=== PATIENT | male | born 1970 | race Caucasian/White ===

== ENCOUNTER 2025-01-09 15:26 | Emergency (ER) | payer OTHER, SELFPAY ==
--- NOTE | ~2025-01-09 | XR_ITS ---
EXAM: XR lumbar spine 2-3V DATE: 01/09/2025 19:12 HISTORY: back pain following heavy weight dropping on chest . COMPARISON: None available. FINDINGS: Mild scoliosis. 5 nonrib-bearing lumbar-type vertebral bodies. Pedicles intact. Normal vert ebral body alignment. Mild lateral vertebral height asymmetry in the frontal view presumably related to scoliosis and degenerative change. Mild marginal osteophytosis at L3-4. Mild disc space narrowing at L4-5. Mild facet hypertrophy and sclerosis in the lower lumbar spine. No fracture or dislocation. IMPRESSION: No acute fracture or traumatic malalignment detected in the lumbar spine. If symptoms per sist or clinical suspicion of injury is high, consider CT of the lumbar spine. Reviewed, dictated and finalized at location K. IMPRESSION: No acute fracture or traumatic malalignment detected in the lumbar spine. If symptoms persist or clinical suspicion of injury is high, consider CT of the lumbar spine.
--- NOTE | ~2025-01-09 | XR_ITS ---
EXAM: XR thoracic spine 3V DATE: 01/09/2025 19:12 HISTORY: back pain following heavy weight dropping on chest . COMPARISON: None available. FINDINGS: Vertebral body alignment intact. Vertebral body heights preserved. Mild anterior wedge def ormity at the thoracolumbar junction, presumably physiologic or chronic. Mild multilevel degenerative disc disease. No traumatic malalignment or fracture. Visualized lung parenchyma is clear. IMPRESSION: No acute fracture or traumatic malalignment detected in the thoracic spine. If symptoms p ersist or clinical suspicion of injury is high, consider CT of the thoracic spine. Reviewed, dictated and finalized at location K. IMPRESSION: No acute fracture or traumatic malalignment detected in the thoraci c spine. If symptoms persist or clinical suspicion of injury is high, consider CT of the thoracic spine.
--- NOTE | ~2025-01-09 | XR_ITS ---
EXAMINATION: XR ribs RT 2V w CXR 2V Exam Date/Time: 01/09/2025 18:55 CDT HISTORY: rib pain, injury Comparison: None available. RESULT: Lines, tubes, and devices: None. Lungs and pleura: Clear. Cardiothymic silhouette: Stable. Other: No acute osseous or upper abdominal finding. IMPRESSION: No acute cardiopulmonary process. No acute osseous finding in the right ribs. Reviewed, dictated and finalized at location K.
--- OUTSIDE RECORDS SUMMARY | 2025-01-09 15:32 | XMS_ITS | Clinical Summary ---
Author Organization [facility] Address [address] [place] [address] Care Team Providers Care Pipe Layer Helper Name Role Phone Jake Best MD Primary Care Provider + Allergies No known active allergies Medications multivitamin tabletIndication s:Vitamin Deficiency Prevention Take 1 tablet by mouth every morning Active protein supplement liquidIndication s:whey protien after work out Take by mouth every morning Active creatine monohydrate 5,000 mg powder in packetIndication s:supplement Take by mouth every morning Active amino acids-whey prot conc,iso 26 gram-150 kcal/39 gram powder Take by mouth Active Active Problems Problem Noted Date Diagnosed Date Complete tear of left rotator cuff 03/23/2021 Overview (03/23/2021): Added automatically from request for surgery [id number] Partial tear of subscapulari s tendon, left, initial encounter 02/05/2021 TFCC (triangular fibrocartil age complex) injury, left, subsequent encounter 11/11/2019 Left wrist pain 10/14/2019 Overview (10/14/2019): Added automatically from request for surgery [id number] Pain in both wrists 07/15/2019 Hearing loss 03/04/2016 Overview (09/01/2016): Hearing loss Varicose veins of lower extremity 03/01/2016 Acute otitis externa 01/17/2016 Overview (08/31/2016): Acute swimmer's ear of both sides Immunizations Immunization Administration Dates Next Due [facility] SARS-CoV-2 Monovalent Vaccination (12+ Yrs) PURPLE 11/04/2020,10/10/2020 Surgical History Surgery Date Site/Laterality Comments VEIN LIGATION AND STRIPPING 2014? Right under anesthesia CLOSED REDUCTION NASAL FRACTURE 05/29/1999 - 05/28/2000 WRIST SURGERY 10/30/2019 Left wrist arthroscopy WRIST SURGERY Right ROTATOR CUFF REPAIR 03/29/2021 - 04/27/2021 Left Medical History Medical History Date Comments COVID-19 virus not detected 2019 COVI D test done 10/28/2019-->Negative 10/29/2019 0755 EE- pre-op testing Spider bite 01/28/2020 resolved Toenail fungus Osteoarthritis Family History Medical History Relation Name Comments Hypertension Father Hypertension; Arthritis Mother Clotting disorder Mother Diabetes Mother Heart disease Mother Stroke Other Anesthesia problems Neg Hx Relation Name Status Comments Father Mother Other Social History Tobacco Use Types Packs/Day Years Used Date Smoking Tobacco: Never Smokeless Tobacco: Never Tobacco Cessation:Counseling Given: Not Answered Alcohol Use Standard Drinks/Week Comments No 0 (1 standard drink = 0.6 oz pur e alcohol) AUDIT-C Answer Date Recorded Q1: How often do you have a drink containing alc ohol? Never 04/12/2021 Average Number of Drinks Not on file 021 Q3: How often do you have si x or more drinks on one occasion? 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 Gender Identity Not on file Sexual Orientation Not on file Obstetrics History Last Filed Vital Signs Vital Sign Reading Time Taken Comments Blood Pressure 118/72 09/29/2024 2:48 PM CDT Pulse 71 09/29/2024 2:48 PM CDT Temperature 36.7 C (98 F) 09/29/2024 2:48 PM CDT Respiratory Rate 18 09/29/2024 2:48 PM CDT Oxygen Saturation 97% 09/29/2024 2:48 PM CDT Inhaled Oxygen Concentration - - Weight 91.9 kg (202 lb 9.6 oz) 09/29/2024 2:48 P M CDT Height 188 cm (6' 2) 04/04/2023 9:30 AM WINDOW MACHINE OPERATOR Body Mass Index 26.01 04/04/2023 9:30 AM WINDOW MACHINE OPERATOR Plan of Treatment Health Maintenance Due Date Last Done Comments Colon Cancer Screening-Colonoscopy 1971 Depression Screening 1971 Hepatitis C Screening 1971 Hepatitis B Screening 10/27/1989 Regular Well Visit/Exam 18-64 10/27/1989 Prostate Cancer Screening-PSA 06/01/2019 06/01/2017 Zoster Vaccine (1 of 2) 10/27/2021 Covid-19 Vaccine (3 - 2023-2 5 season) 2024 11/04/2020, 10/10/2020 Influenza Vaccine (#1) 2025 , 02/11/2020 DTaP/Tdap/Td Vaccine (3 - Td or Tdap) 10/06/2028 10/06/2018, 05/29/2011 Pneumococcal vaccine <65 Aged Out No longer eligible based on patient's age to complete this topic Medical Devices Implanted Type Area Loan Secretary Device Identifier Shelf Expiration Date Model / Serial / Lot [employer] Ar-1530ds Bio-Tenodesis Fiberwire 2.5mm Needle Cannulated Drill Suture Pass - [id number] Implanted:Qty: 1 on 03/04/2020 by Duglas Andrade MD at [facility] [place] Right: Wrist [employer] 08/26/2024 AR-1 530DS / / [id number] [employer] Ar-8825p Pushlock 2.5mm 8mm Mini [place] Suture Peek Sterile - [id number] Implanted:Qty: 1 on 03/04/2020 by Duglas Andrade MD at [facility] Right: Wrist [employer] 09/25/2024 AR-8 825P / / [id number] [employer] Ar-2267 It Solutions Architect Large Eyelet Pectoralis Button Fixation Latex Free - [id number] Implanted:Qty: 1 on 04/19/2021 by Jan Menchaca MD at [facility] [place] Left: Shoulder [employer] 08/26/2025 AR-2267 / / [id number] [employer] Ar-1927bct Corkscrew Suturetape 5.5mm 14.7mm Bioabsorbable Full Thread 1.3mm - [id number] Implanted:Qty: 1 on 04/19/2021 by Jan Menchaac MD at [facility] [place] Left: Shoulder [employer] 12/26/2022 AR-1927BCT / / [id number] [employer] Ar-1927bct Corkscrew Suturetape 5.5mm 14.7mm Bioabsorbable Full Thread 1.3mm - [id number] Implanted:Qty: 1 on 04/19/2021 by Jan Menchaca MD at [facility] [place] Left: Shoulder [employer] 12/26/2022 AR-1927BCT / / [id number] [employer] Ar-2324 Bcm Swivelock 4.75mm 24.5mm Self Punch Vent Shoulder [place] Suture - [id number] Implanted:Qty: 1 on 04/19/2021 by Jan Menchaca MD at [facility] Left: Shoulder [employer] 01/26/2025 AR-2324BCM / / [id number] [employer] Ar-2324 Bcm Swivelock 4.75mm 24.5mm Self Punch Vent Shoulder [place] Suture - [id number] Implanted:Qty: 1 on 04/19/2021 by Jan Menchaca MD at [facility] Left: Shoulder [employer] 01/26/2025 AR-2324BCM / / [id number] Explanted Type Area Loan Secretary Device Identifier Shelf Expiration Date Model / Serial / Lot [employer] [id number] Denny .45in 9in 1 [place] [facility] Wire Fixation - [id number] Explanted:Qty: 1 on 03/04/2020 by Duglas Andrade MD at [facility] [place] Right: Wrist [employer] [id number] S / / Procedures Procedure Name Priority Date/Time Associated Diagnosis Comments PSA SCREEN Routine 06/01/2017 9:30 AM WINDOW MACHINE OPERATOR from Last 3 Months or Most Recently Relevant to Health Maintenance Results * PSA screen (06/01/2017 9:30 AM WINDOW MACHINE OPERATOR) PSA-Total 0.23 0.10 - 4.00 ng/mL [facility] (PRINCESS) Blood specimen (specimen) 06/01/2017 9:30 AM WINDOW MACHINE OPERATOR 06/01/2017 4:13 PM WINDOW MACHINE OPERATOR Narrative MICHELLE FARRIS (PRINCESS) - 06/01/2017 4:53 PM WINDOW MACHINE OPERATOR us Jake Best MD LAB BLOOD ORDERABLES Fin al Result MICHELLE FARRIS (PRINCESS) 1 [facility] Department [place] [address] from Last 3 Months or Most Recently Relevant to Health Maintenance Insurance [facility] [employer] [place] [address] WORKERS COMPENSATION GENERIC Advance Directives For more information, please contact: [phone] * Full Code (Latest Code Status on File) Date Activated Date Inactivated Comments 03/04/2020 12:16 PM 03/04/2020 5:40 PM Care Teams Pipe Layer Helper Relationship Specialty Start Date End Date Jake Best MD PCP - General 06/02/17
--- OUTSIDE RECORDS SUMMARY | 2025-01-09 15:32 | XMS_ITS | Clinical Summary ---
Author Organization [facility] Address [address] [place] [address] Care Team Providers Care Exterior Work Helper Name Role Phone Jake Best MD Primary Care Provider Allergies No known active allergies Medications multivitamin (DAILY-ALMA) tablet Take 1 Tablet by mouth daily. Active protein supplement (PRO-STAT) Liquid Take by mouth. Active Amino Acids Powder Take by mouth. Active creatine, bulk, 100 % Powder by [facility].(Non-Dr ug; Combo Route) route. Active FA/mv,calc,iron /pollen/idvv367 (MAXIMUM DAILY GREEN ORAL) Take by mouth. Pt takes Huel brand Greens with the mutlti vitamin in it Active Active Problems Patient Care Coordination No te Formatting of this note migh t be different from the original. 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 [place] [address] Singh Castillo MD veins - follow up US results 12/18/2024 8:58 AM CDT - 12/18/2024 11:59 PM CDT Hospital Encounter [facility] [place] [address] [place] [address] Singh Castillo MD Discharge Disposition: Home or Self Care 12/05/2024 12:12 PM CDT - 12/05/2024 11:59 PM CDT Hospital Encounter [facility] [address] [place] [address] Singh Castillo MD Discharge Disposition: Home or Self Care 12/02/2024 Telephone [facility] [address] [place] [address] Singh Castillo MD does insurance cover his 2nd procedure 11/19/2024 8:55 AM CDT - 11/19/2024 11:59 PM CDT Hospital Encounter [facility] [address] [place] [address] Singh Castillo MD Discharge Disposition: Home or Self Care 11/08/2024 Telephone [facility] [address] [place] [address] Singh Castillo MD need help rescheduling his F/U's 11/01/2024 Orders Only [facility] [address] [place] [address] Singh Castillo MD Venous insufficiency (Primary Dx) 11/01/2024 Telephone [facility] [address] [place] [address] Singh Castillo MD wants procedure 10/31/2024 Telephone [facility] [address] [place] [address] Singh Castillo MD wants procedure 10/23/2024 Telephone [facility] [address] [place] [address] Singh Castillo MD Wants Appointment 10/23/2024 Telephone [facility] [address] [facility] [address] [place] [address] Singh Castillo MD Venous Plan 10/22/2024 1:00 PM CDT Office Visit [facility] - [address] [facility] [address] [place] [address] Singh Castillo MD Chronic venous hypertension with inflammation involving both sides (Primary Dx); Varicose veins of both lower extremities with pain 10/22/2024 Chart Note [facility] [address] [facility] [place] [address] Fanny Yakelincristy Sales 14 Questionnaire 10/18/2024 12:33 PM CDT - 10/18/2024 11:59 PM CDT Hospital Encounter [facility] Testing [facility] [address] [facility] [address] [address] [place] [address] Gustavo Barajas MD Discharge Disposition: Home or Self Care 10/18/2024 Results Follow-Up [facility] [address] [facility] [address] [place] [address] Elma Alcantara, CROTCH BREAKER-AQUATIC FACILITY MANAGER US VENOUS REFLUX BILATERAL 10/18/2024 External Device Data STL ABSTRACTION Provider, Abstract 10/17/2024 External Device Data [facility] ABSTRACTION Provider, Abstract 10/16/2024 External Device Data ST[facility] ABSTRACTION Provider, Abstract 10/16/2024 External Device Data STL ABSTRACTION Provider, Abstract 10/15/2024 External Device Data STL ABSTRACTION Provider, Abstract from Last 3 Months Immunizations Immunization Administration Dates Next Due (ADACEL/BOOSTRIX)(10 YR UP) TDAP VACCINE, 0.5ML, IM 10/06/2018,05/29/2011 (PFIZER)(12 YR UP) COVID-19 VACCINE - EMERGENCY USE AUTHORIZATION, MRNA, [id number](PF) 30 MCG/0.3 ML IM SUSP 11/04/2020,10/10/2020 INFLUENZA VACCINE QUADRIVALENT 6 MOS UP PF IM ,02/11/2020 Family History Medical History Relation Name Comments Arthritis-osteo Brother 1 Osteoarthrit is Healthy Brother 2 Heart Disease Father Heart Surgery Father Arthritis-osteo Mother Osteoarthrit is Diabetes Mother Fibromyalgia,Co litis,Neurpathy Relation Name Status Comments Brother 1 Alive with Fibromyalg ia Brother 2 Alive Daughter Alive Father Alive Maternal Grandfather Maternal Grandmother Mother Alive with fibromyalg ia Paternal Grandfather Paternal Grandmother Son 1 Alive Son 2 Alive Son 3 Alive Social History Tobacco Use Types Packs/Day Years Used Date Smoking Tobacco: Never Smokeless Tobacco: Never Tobacco Cessation:Counseling Given: Not Answered Alcohol Use Standard Drinks/Week Comments No 0 (1 standard drink = 0.6 oz pur e alcohol) Sex and Gender Information Value Date Recorded Sex Assigned at Not on file Legal Sex 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 Gender Identity Not on file Sexual Orientation Not on file Last Filed Vital Signs Vital Sign Reading Time Taken Comments Blood Pressure 125/74 12/05/2024 12:24 PM CDT Pulse 71 12/05/2024 12:24 PM CDT Temperature 36.3 C (97.3 F) 12/05/2024 12:24 PM CDT Respiratory Rate 20 08/01/2023 8:55 AM GLUER MACHINE OPERATOR Oxygen Saturation 98% 12/05/2024 12:24 PM CDT Inhaled Oxygen Concentration - - Weight 92.1 kg (203 lb) 12/05/2024 12:24 PM CDT Height 188 cm (6' 2) 12/05/2024 12:24 PM CDT Body Mass Index 26.06 12/05/2024 12:24 PM CDT Plan of Treatment Upcoming Encounters Date Type Department Care Team (Late st Contact Info) Description 02/24/2025 1:15 PM CDT Office Visit [facility] [address] [place] [address] Elma Alcantara, CROTCH BREAKER-AQUATIC FACILITY MANAGER [address] [facility] [address] [place] [address] Health Maintenance Due Date Last Done Comments HEPATITIS B VACCINES (1 of 3 - 19+ 3-dose series) 10/27/1990 FIT-DNA Q 3 years 10/27/2016 FIT/FOBT Q 1 year 10/27/2016 Flex Sig/CT Colonography Q 5 years 10/27/2016 ZOSTER VACCINE (1 of 2) 10/27/2021 COVID-19 Vaccine ( - 2023-2 5 season) 2024 11/04/2020, 10/10/2020 INFLUENZA VACCINE (#1) 2024 03/03/2021, 2019 Pre-Diabetes and Diabetes Screening 08/09/2027 08/08/2024, 03/04/2021, 07/05/2019 DTAP/TDAP/TD VACCINES (3 - T d or Tdap) 10/06/2028 10/06/2018, 05/29/2011 COLORECTAL SCREENING 07/31/2030 08/01/2023, 08/01/19 24 Colorectal Cancer Screening 07/31/2030 Preventative Visit- Commercial Completed 0 08/07/2024, 07/17/2023, 03/03/2021, Additional history exists Procedures Procedure Name Priority Date/Time Associated Diagnosis Comments US VENOUS DUPLEX EXT FOLLOW UP LT Routine 12/18/2024 9:20 AM CDT Venous insufficiency US VENOUS REFLUX BILATERAL Routine 10/18/2024 2:01 PM CDT Venous insufficiency HEMOGLOBIN A1C Routine 08/08/2024 8:59 AM CDT Annual physical exam Screening, lipid Screening for thyroid disorder Screening for diabetes mellitus Screening for prostate cancer COLONOSCOPY REPORT 08/01/2023 8: 38 AM GLUER MACHINE OPERATOR from Last 3 Months or Most Recently Relevant to Health Maintenance Results * US VENOUS DUPLEX EXT FOLLOW UP LT (12/18/2024 9:20 AM CDT) Anatomical Region Laterality Modality Ultrasound 12/18/2024 9:06 AM CDT Narrative 12/18/2024 9:41 AM CDT [facility] Testing Venous Exam Limited Lower Extremity Duplex Patient: Kendrick Egan Study ID: [id number] Gender: M : 1970 Age: 54 Race: CAU Height 188cm Study Date: 12/18/2024 Weight: 92.1kg Access. #: [id number] *Referring Physician:* Singh Castillo MD, Gregory MD *Ordering Physician:* Singh Castillo MD *Butadiene Converter Operator:* Linda Gould RDCS, TARA Indications: Status post lt gsv venous ablation. Study data: Study status: Routine. Left lower extremity venous duplex evaluation. Doppler flow study including spectral analysis, color and mario scale imaging. Birthdate: Patient birthdate: 1970. Age: Patient is 54year(s) old. Sex: gender: male. Height: 188cm. 74in. Weight: 92.1kg. : 203lb. Body mass index: BMI: 26.1kg/m^2. Body surface area: BSA: 2.2m^2. Study date: Study date: 12/18/2024. Study time: 09:06 AM. Patient status: Outpatient. Impressions 1. No evidence of deep vein thrombosis involving the left common femoral vein. 2. Treated portions of the left great saphenous vein(s) demonstrated no flow. Tables: Venous flow: + +-------+ +--------+ !Location !Overall!Flow properties !Comments! + +-------+ +--------+ !Left common femoral - !Patent !Normal augmentation; compressible!--------! + +-------+ +--------+ !Left great saphenous -!Absent !Noncompressible !No flow ! + +-------+ +--------+ *Velocities are expressed in cm/s, Diameters are expressed in mm Prepared and Electronically Authenticated Duglas Pereyra M.D. [id number]:00 Procedure Note Duglas Pereyra MD - 12/18/2024 [facility] Venous Exam Limited Lower Extremity Duplex Patient: Kendrick Egan Study ID: [id number] Gender: M : 1970 Age: 54 Race: [facility] Height 188cm Study Date: 12/18/2024 Weight: 92.1kg Access. #: [id number] *Referring Physician:* Singh Castillo MD, Gregory MD *Ordering Physician:* Singh Castillo MD *Butadiene Converter Operator:* Linda Gould RDCS, RVT Indications: Status post lt gsv venous ablation. Study data: Study status: Routine. Left lower extremity venousduplex evaluation. Doppler flow study including spectral analysis, color andgray scale imaging. Birthdate: Patient birthdate: 1970. Age: Patientis 54year(s) old. Sex: gender: male. Height: 188cm. 74in.Weight: 92.1kg. : 203lb. Body mass index: BMI: 26.1kg/m^2. Body surface area: BSA: 2.2m^2. Study date: Study date: 12/18/2024. Study time: 09:06 AM. Patient status: Outpatient. Impressions 1. No evidence of deep vein thrombosis involving the left common femoralvein. 2. Treated portions of the left great saphenous vein(s) demonstrated noflow. Tables: Venous flow: + +-------+ +--------+ !Location !Overall!Flow properties!Comments! + +-------+ +--------+ !Left common femoral - !Patent !Normal augmentation;compressible!--------! + +-------+ +--------+ !Left great saphenous -!Absent !Noncompressible !No flow! + +-------+ +--------+ *Velocities are expressed in cm/s, Diameters are expressed in mm Prepared and Electronically Authenticated Duglas Pereyra M.D. [id number]:41:00 us Singh Castillo MD US ORDERABLES Final Resu lt * US VENOUS REFLUX BILATERAL (10/18/2024 2:01 PM CDT) Anatomical Region Laterality Modality Lower Extremity Ultrasound 10/18/2024 12:5 6 PM CDT Narrative 10/18/2024 2:20 PM CDT [facility] Venous Exam Venous Reflux Evaluation Patient: Kendrick Egan Study ID: [id number] Gender: M : 1970 Age: 53 Race: CAU Height 188cm Study Date: 10/18/2024 Weight: 95.7kg Access. #: [id number] *Referring Physician:Gustavo Flores Christopher *Ordering Physician:Gustavo Flores *Butadiene Converter Operator:* Dinorah Cannon RVT, RVS Indications: Venous insufficiency. History: PMH: No prior study is available for comparison. Study data: Study status: Routine. Venous reflux evaluation. Bilateral evaluation with greyscale and Doppler imaging and standing position. Birthdate: Patient birthdate: 1970. Age: Patient is 53year(s) old. Sex: gender: male. Height: 188cm. 74in. Weight: 95.7kg. : 211lb. Body mass index: BMI: 27.1kg/m^2. Body surface area: BSA: 2.25m^2. Study date: Study date: 10/18/2024. Study time: 12:56 PM. Patient status: Outpatient. Impressions 1. No evidence of deep or superficial vein thrombosis involving the visualized veins of the bilateral lower extremities. 2. Patient states having history of multiple venous interventions for venous insufficiency involving bilateral lower extremities. 3. Venous reflux was identified in bilateral lower extremities as described in the table below. 4. Multiple tortuous varicosities noted to reflux as described in table below. 5. Consider referral to vein center if clinically indicated. Tables: Venous reflux table: + +---------+------+---+ +---------+------+---+ + !Rt DVT +/-!Rt SVT !Rt !Rt !Location !Lt SVT !Lt !Lt !Lt DVT +/-! ! !+/- !Diamet!Ref! !+/- !Diamet!Ref! ! ! ! !er !lux! ! !er !lux! ! ! ! ! !(ms! ! ! !(ms! ! ! ! ! !) ! ! ! !) ! ! + +---------+------+---+ +---------+------+---+ + !negative !---------!------!---!CFV !---------!------!---!negative ! + +---------+------+---+ +---------+------+---+ + !negative !---------!------!---!FV !---------!------!---!negative ! + +---------+------+---+ +---------+------+---+ + !negative !---------!------!---!Pop V !---------!------!---!negative ! + +---------+------+---+ +---------+------+---+ + ! !negative !7.0mm !> !SFJ !negative !5.9mm !> ! ! ! ! ! !500! ! ! !500! ! ! ! ! !ms ! ! ! !ms ! ! + +---------+------+---+ +---------+------+---+ + ! !negative !5.9mm !> !GSV distal !negative !5.7mm !> ! ! ! ! ! !500!to SFJ ! ! !500! ! ! ! ! !ms ! ! ! !ms ! ! + +---------+------+---+ +---------+------+---+ + ! !not !------!---!GSV proximal!negative !5.5mm !> ! ! ! !visualize! ! !thigh ! ! !500! ! ! !d ! ! ! ! ! !ms ! ! + +---------+------+---+ +---------+------+---+ + ! !negative !5.5mm !> !GSV knee !negative !5.2mm !> ! ! ! ! ! !500!level ! ! !500! ! ! ! ! !ms ! ! ! !ms ! ! + +---------+------+---+ +---------+------+---+ + ! !negative !5.6mm !> !GSV proximal!negative !3.5mm !> ! ! ! ! ! !500!calf ! ! !500! ! ! ! ! !ms ! ! ! !ms ! ! + +---------+------+---+ +---------+------+---+ + ! !negative !7.2mm !> !Accessory !not !------!---! ! ! ! ! !500!vein !visualize! ! ! ! ! ! ! !ms ! !d ! ! ! ! + +---------+------+---+ +---------+------+---+ + ! !negative !3.6mm !> !Perforating !negative !3.5mm !> ! ! ! ! ! !500!vein ! ! !500! ! ! ! ! !ms ! ! ! !ms ! ! + +---------+------+---+ +---------+------+---+ + ! !negative !3.7mm !> !SPJ !negative !3.5mm !---! ! ! ! ! !500! ! ! ! ! ! ! ! ! !ms ! ! ! ! ! ! + +---------+------+---+ +---------+------+---+ + ! !---------!------!---!Thigh !---------!------!---! ! ! ! ! ! !extension ! ! ! ! ! ! ! ! ! !vein ! ! ! ! ! + +---------+------+---+ +---------+------+---+ + ! !negative !4.2mm !> !SSV proximal!negative !5.3mm !> ! ! ! ! ! !500!calf ! ! !500! ! ! ! ! !ms ! ! ! !ms ! ! + +---------+------+---+ +---------+------+---+ + ! !negative !3.5mm !> !SSV mid calf!negative !5.8mm !> ! ! ! ! ! !500! ! ! !500! ! ! ! ! !ms ! ! ! !ms ! ! + +---------+------+---+ +---------+------+---+ + ! !negative !4.1mm !> !Varicose !negative !3.5mm !> ! ! ! ! ! !500!vein ! ! !500! ! ! ! ! !ms ! ! ! !ms ! ! + +---------+------+---+ +---------+------+---+ + ! !negative !3.9mm !> !Varicose !negative !3.6mm !> ! ! ! ! ! !500!vein ! ! !500! ! ! ! ! !ms ! ! ! !ms ! ! + +---------+------+---+ +---------+------+---+ + ! !negative !3.7mm !> !Varicose !---------!------!---! ! ! ! ! !500!vein ! ! ! ! ! ! ! ! !ms ! ! ! ! ! ! + +---------+------+---+ +---------+------+---+ + Prepared and Electronically Authenticated Carla Culver [id number] Procedure Note Carla Culver MD - 10/18/2024 [facility] Venous Exam Venous Reflux Evaluation Patient: Kendrick Egan Study ID: [id number] Gender: M : 1970 Age: 53 Race: [facility] Height 188cm Study Date: 10/18/2024 Weight: 95.7kg Access. #: [id number] *Referring Physician:Gustavo Flores Christopher *Ordering Physician:* Gustavo Barajas *Butadiene Converter Operator:Jeferson Cannon RVT, S Indications: Venous insufficiency. History: PMH: No prior study is available for comparison. Study data: Study status: Routine. Venous reflux evaluation. Bilateral evaluation with greyscale and Doppler imaging and standingposition. Birthdate: Patient birthdate: 1970. Age: Patient is 53year(s)old. Sex: gender: male. Height: 188cm. 74in. Weight: 95.7kg. :211lb. Body mass index: BMI: 27.1kg/m^2. Body surface area: BSA: 2.25m^2.Study date: Study date: 10/18/2024. Study time: 12:56 PM. Patient status: Outpatient. Impressions 1. No evidence of deep or superficial vein thrombosis involving thevisualized veins of the bilateral lower extremities. 2. Patient states having history of multiple venous interventions forvenous insufficiency involving bilateral lower extremities. 3. Venous reflux was identified in bilateral lower extremities asdescribed in the table below. 4. Multiple tortuous varicosities noted to reflux as described in tablebelow. 5. Consider referral to vein center if clinically indicated. Tables: Venous reflux table: + +---------+------+---+ +---------+------+---+ + !Rt DVT +/-!Rt SVT !Rt !Rt !Location !Lt SVT !Lt !Lt !Lt DVT+/-! ! !+/- !Diamet!Ref! !+/- !Diamet!Ref!! ! ! !er !lux! ! !er !lux!! ! ! ! !(ms! ! ! !(ms!! ! ! ! !) ! ! ! !) !! + +---------+------+---+ +---------+------+---+ + !negative !---------!------!---!CFV!---------!------!---!negative ! + +---------+------+---+ +---------+------+---+ + !negative !---------!------!---!FV!---------!------!---!negative ! + +---------+------+---+ +---------+------+---+ + !negative !---------!------!---!Pop V!---------!------!---!negative ! + +---------+------+---+ +---------+------+---+ + ! !negative !7.0mm !> !SFJ !negative !5.9mm !>! ! ! ! ! !500! ! ! !500!! ! ! ! !ms ! ! ! !ms !! + +---------+------+---+ +---------+------+---+ + ! !negative !5.9mm !> !GSV distal !negative !5.7mm !>! ! ! ! ! !500!to SFJ ! ! !500!! ! ! ! !ms ! ! ! !ms !! + +---------+------+---+ +---------+------+---+ + ! !not !------!---!GSV proximal!negative !5.5mm !>! ! ! !visualize! ! !thigh ! ! !500!! ! !d ! ! ! ! ! !ms !! + +---------+------+---+ +---------+------+---+ + ! !negative !5.5mm !> !GSV knee !negative !5.2mm !>! ! ! ! ! !500!level ! ! !500!! ! ! ! !ms ! ! ! !ms !! + +---------+------+---+ +---------+------+---+ + ! !negative !5.6mm !> !GSV proximal!negative !3.5mm !>! ! ! ! ! !500!calf ! ! !500!! ! ! ! !ms ! ! ! !ms !! + +---------+------+---+ +---------+------+---+ + ! !negative !7.2mm !> !Accessory !not!------!---! ! ! ! ! !500!vein !visualize! ! !! ! ! ! !ms ! !d ! ! !! + +---------+------+---+ +---------+------+---+ + ! !negative !3.6mm !> !Perforating !negative !3.5mm !>! ! ! ! ! !500!vein ! ! !500!! ! ! ! !ms ! ! ! !ms !! + +---------+------+---+ +---------+------+---+ + ! !negative !3.7mm !> !SPJ !negative !3.5mm!---! ! ! ! ! !500! ! ! ! !! ! ! ! !ms ! ! ! ! !! + +---------+------+---+ +---------+------+---+ + ! !---------!------!---!Thigh!---------!------!---! ! ! ! ! ! !extension ! ! ! !! ! ! ! ! !vein ! ! ! !! + +---------+------+---+ +---------+------+---+ + ! !negative !4.2mm !> !SSV proximal!negative !5.3mm !>! ! ! ! ! !500!calf ! ! !500!! ! ! ! !ms ! ! ! !ms !! + +---------+------+---+ +---------+------+---+ + ! !negative !3.5mm !> !SSV mid calf!negative !5.8mm !>! ! ! ! ! !500! ! ! !500!! ! ! ! !ms ! ! ! !ms !! + +---------+------+---+ +---------+------+---+ + ! !negative !4.1mm !> !Varicose !negative !3.5mm !>! ! ! ! ! !500!vein ! ! !500!! ! ! ! !ms ! ! ! !ms !! + +---------+------+---+ +---------+------+---+ + ! !negative !3.9mm !> !Varicose !negative !3.6mm !>! ! ! ! ! !500!vein ! ! !500!! ! ! ! !ms ! ! ! !ms !! + +---------+------+---+ +---------+------+---+ + ! !negative !3.7mm !> !Varicose!---------!------!---! ! ! ! ! !500!vein ! ! ! !! ! ! ! !ms ! ! ! ! !! + +---------+------+---+ +---------+------+---+ + Prepared and Electronically Authenticated Palomo Dayroncor[facility]on [id number] Gustavo Barajas MD ORDERABLES Final R esult * HEMOGLOBIN A1C (08/08/2024 8:59 AM CDT) [facility] Signature HEMOGLOBIN A1C 5.4 <5.7 % of total Hgb [employer] Atkinson Comment: For the purpose of screening for the presence of diabetes: <5.7% Consistent with the absence of diabetes 5.7-6.4% Consistent with increased risk for diabetes (prediabetes) > or =6.5% Consistent with diabetes This assay result is consistent with a decreased risk of diabetes. Currently, no consensus exists regarding use of hemoglobin A1c for diagnosis of diabetes in children. According to [place] [employer] (ADA) guidelines, hemoglobin A1c <7.0% represents optimal control in non- diabetic patients. Different metrics may apply to specific patient populations. Standards of Medical Care in Diabetes(ADA). ESTIMATED AVERAGE GLUCOSE (MG/DL) 108 mg/dL [employer]Jocelin Atkinson ESTIMATED AVERAGE GLUCOSE (MMOL/L) 6.0 mmol/L [employer] Atkinson Comment: FASTING:YES FASTING: YES Test Performed at: [employer] [place] [address] [address] [address] Cody Gutierrez Vo Blood 08/08/2024 8:59 AM CDT 08/08/2024 8:59 AM CDT us Hernán CASAS CHEMISTRY ORDERABLES Fi nal Result [facility] [phone] [facility] [place] [address] [address] [address] * COLONOSCOPY REPORT (08/01/2023 8:38 AM GLUER MACHINE OPERATOR) Narrative Procedure Note Karlos Fragoso MD - 08/01/2023 8:38 AM CST [facility] Endoscopy Patient Name: Kendrick Egan Procedure Date: 08/01/2023 Date of : 1970 Attending MD: Karlos Fragoso MD, Procedure: Colonoscopy Indications: Screening for colorectal malignant neoplasm Providers: Karlos Fragoso MD Referring MD: Jake Best MD Medicines: Monitored Anesthesia Care Complications: No immediate complications. Procedure: Informed consent was obtained for the procedure, including moderate sedation after risks were discussed. Based on the pre-procedure assessment, including review of the patient's medical history, medications, allergies, and review of systems, the patient was deemed to be an appropriate candidate for sedation. A timeout was performed. Continuous ECG monitoring, pulse oximetry, blood pressure monitoring, and direct observation were performed. The Colonoscope was introduced through the anus and advanced to the terminal ileum. The colonoscopy was performed without difficulty. The patient tolerated the procedure well. The quality of the bowel preparation was evaluated using the BBPS ([place] Bowel Preparation Scale) with scores of: Right Colon = 3, Transverse Colon = 3 and Left Colon = 3 (entire mucosa seen well with no residual staining, small fragments of stool or opaque liquid). The total BBPS score equals 9. Findings: The perianal and digital rectal examinations were normal. The terminal ileum appeared normal. A 2 mm polyp was found in the ascending colon. The polyp was sessile. The polyp was removed with a cold snare. Resection and retrieval were complete. Non-bleeding internal hemorrhoids were found during retroflexion. The hemorrhoids were small. Impression: - The examined portion of the ileum was normal. - One 2 mm polyp in the ascending colon, removed with a cold snare. Resected and retrieved. - Non-bleeding internal hemorrhoids. Recommendation: - Await pathology results. - Repeat colonoscopy in 7-10 years for surveillance. Procedure Code(s): --- Professional --- 02886, Colonoscopy, flexible; with removal of tumor(s), polyp(s), or other lesion(s) by snare technique CPT copyright 2020 [place] [employer]. All rights reserved. The codes documented in this report are preliminary and upon addictions counselor review may be revised to meet current compliance requirements. Karlos Fragoso MD 08/01/2023 8:38:28 AM This report has been signed electronically. Number of Addenda: [phone] [id number], [place] [address] Karlos Fragoso MD GI PROCEDURE ORDERABLES Final Re sult from Last 3 Months or Most Recently Relevant to Health Maintenance Insurance [facility] [id number] [place] [id number] Care Teams Exterior Work Helper Relationship Specialty Start Date End Date Jake Best MD PCP - General Internal Medicine 05/11/17
--- OUTSIDE RECORDS SUMMARY | 2025-01-09 15:32 | XMS_ITS | Clinical Summary ---
Author Organization [facility] Address [address] [place] [address] Phone Care Team Providers Care Bending Roll Operator Name Role Phone Jake Best MD Primary Care Provider [phone] Allergies No known active allergies Medications Turmeric Curcumin 500 MG Capsule Take by mouth. Active [place] 3 1000 MG Capsule Take 1 g by mouth. Active Nutritional Supplements (ProMod) Liquid Take by mouth. Active naproxen (NAPROSYN) 500 MG Tablet Take 500 mg by mouth. 06/08/2020 Active Multiple Vitamin (Daily-Amanda) Tablet Take 1 Tablet by mouth. Active ketoconazole (NIZORAL) 2 % Cream Apply. 02/23/2017 Active ipratropium (ATROVENT) 0.06 % Solution 2 Sprays. 04/22/2017 Active Creatine ([id number]) 5000 MG Pack Take by mouth. Active Active Problems No known active problems Immunizations Immunization Administration Dates Next Due TDAP Vaccine 10/06/2018 Social History Tobacco Use Types Packs/Day Years Used Date Smoking Tobacco: Never Smokeless Tobacco: Never Alcohol Use Standard Drinks/Week Comments Never 0 (1 standard drink = 0.6 oz pur e alcohol) AUDIT-C Answer Date Recorded Frequency of Alcohol Consumption Never 10/06/2018 Average Number of Drinks Not on file 019 Frequency of Binge Drinking Not on file 09/26 Sex and Gender Information Value Date Recorded Sex Assigned at Not on file Legal Sex Male 10:59 PM CDT Gender Identity Not on file Sexual Orientation Not on file Last Filed Vital Signs Vital Sign Reading Time Taken Comments Blood Pressure 122/74 08/19/2020 9:40 AM CDT Pulse 58 08/19/2020 9:40 AM CDT Temperature 37.4 C (99.4 F) 08/19/2020 9:40 AM CDT Respiratory Rate 16 10/06/2018 8:18 PM CDT Oxygen Saturation 94% 08/19/2020 9:40 AM CDT Inhaled Oxygen Concentration - - Weight 86.2 kg (190 lb) 10/06/2018 7:06 PM CDT Height 188 cm (6' 2) 10/06/2018 7:06 PM CDT Body Mass Index 24.39 10/06/2018 7:06 PM CDT Plan of Treatment Health Maintenance Due Date Last Done Comments Hepatitis C Virus (HCV) Screening 1970 Hepatitis B Immunization (1 of 3 - 19+ 3-dose series) 10/27/1990 Cologuard 10/27/2016 Colonoscopy 10/27/2016 Colorectal Cancer Screening 10/27/2016 Immunochemical Fecal Occult Blood 10/27/2016 Pneumococcal Immunization (5 0+ years) (1 of 1 - PCV) 10/27/2021 Zoster Immunization (1 of 2) 10/27/2021 SARS-COV-2 Immunization (3 - 2023-25 season) 2024 11/04/2020, 10/10/2020 Influenza Immunization (#1) 2025 Respiratory Syncytial Virus (RSV) Immunization (Adult) (1 - 1-dose 75+ series) 10/27/2046 DTaP/Tdap/Td Immunization Discontinued 10/06/2018 Human Papillomavirus (HPV) Immunization Aged Out No longer eligible based on patient's age to complete this topic Meningococcal Immunization (ACWY) Aged Out No longer eligible based on patient's age to complete this topic Rotavirus Immunization Aged Out No lo nger eligible based on patient's age to complete this topic Insurance [facility] Care Teams Bending Roll Operator Relationship Specialty Start Date End Date Jake Best MD [address] [place] [id number] PCP - General 10/06/18
[2025-01-09 15:36] VITALS: BP 135/78; PULSE 68; RESP 18; TEMP 36.4; O2SAT 98
--- NOTE | 2025-01-09 18:48 | ED_ITS ---
HPI - Back Pain/Injury General Chief Complaint: Back Pain/Injury <Sonam Guan APRN - Last Filed: 01/09/25 18:54> Stated Complaint: R. thoracic back pain following workout 2 days ago <Sonam Guan APRN - Last Filed: 01/09/25 18:54> Time Seen by Provider: 01/09/25 18:45 <Sonam Guan APRN - Last Filed: 01/09/25 18:54> Focused HPI: Patient is a 54-year-old male who presents to the ER with back pain. He reports he was working out 3 days ago and ?dropped a 100 lb dumbbell on my chest. Patient reports initially he had right rib cage pain, but it has now progressed to his back. He reports he does not think he needs a CT scan. Patient sources a history of left shoulder rotator cuff surgery and bilateral wrist surgeries. He denies any shortness of breath, numbness and tingling in his extremities, saddle anesthesia or loss of continence. GENERAL: Well-appearing, well-nourished, and in no acute distress. HEAD: Normocephalic, atraumatic. CHEST: Clear to auscultation. ?No respiratory distress. HEART: Regular rate and rhythm.? NEURO: ?Alert and oriented x3. Cranial nerves intact Patient screened in triage and initial orders placed.? ?Additional care and disposition to be based upon?diagnostic testing and treatment. <Sonam Guan APRN - Last Filed: 01/09/25 18:54> Related Data Allergies/Adverse Reactions: Allergies Allergy/AdvReac Type Severity Reaction Status Date / Time No Known Allergies Allergy Verified 01/09/25 18:52 <Sonam Guan APRN - Last Filed: 01/09/25 18:54> Review of Systems Review of Systems: All systems reviewed & are unremarkable except as noted in HPI and below <Cristal Sutton PA-C - Last Filed: 01/09/25 19:39> Exam Narrative: GENERAL: Well-appearing, well-nourished, and in no acute distress. HEAD: Normocephalic, atraumatic. EYES: EOMI. CHEST: Clear to auscultation. No respiratory distress. No wheezes rales or rhonchi. No traumatic findings HEART: Regular rate and rhythm. No murmur heard. Normal peripheral pulses. EXTREMITIES: Normal range of motion. No edema. SKIN: Warm, dry, no rash. NEURO: No focal deficits. Alert and oriented x3. PSYCH: Normal mood and affect <Cristal Sutton PA-C - Last Filed: 01/09/25 19:39> Course Vital Signs Vital signs: Vital Signs Temperature 97.6 F 01/09/25 15:36 Pulse Rate 68 01/09/25 15:36 Respiratory Rate 18 01/09/25 15:36 Blood Pressure 135/78 01/09/25 15:36 Pulse Oximetry 98 01/09/25 15:36 Oxygen Delivery Room Air 01/09/25 15:36 Temperature 97.8 F 01/09/25 18:52 Pulse Rate 58 L 01/09/25 18:52 Respiratory Rate 16 01/09/25 18:52 Blood Pressure 140/85 01/09/25 18:52 Pulse Oximetry 99 01/09/25 18:52 Oxygen Delivery Room Air 01/09/25 18:52 <Sonam Guan, THERAPY TECHNICIAN - Last Filed: 01/09/25 18:54> Vital Signs Temperature 97.6 F 01/09/25 15:36 Pulse Rate 68 01/09/25 15:36 Respiratory Rate 18 01/09/25 15:36 Blood Pressure 135/78 01/09/25 15:36 Pulse Oximetry 98 01/09/25 15:36 Oxygen Delivery Room Air 01/09/25 15:36 Temperature 97.8 F 01/09/25 18:52 Pulse Rate 58 L 01/09/25 18:52 Respiratory Rate 16 01/09/25 18:52 Blood Pressure 140/85 01/09/25 18:52 Pulse Oximetry 99 01/09/25 18:52 Oxygen Delivery Room Air 01/09/25 18:52 <Cristal Sutton PA-C - Last Filed: 01/09/25 19:39> MDM - Back Pain/Injury MDM Narrative Medical decision making narrative: Patient presents to the emergency department for right-sided rib pain/back pain after an injury a couple of days prior to arrival. Patient's vitals are stable. X-rays of the right rib/chest, thoracic, lumbar spine without acute osseous abnormalities. Patient updated on his workup and agrees with plan of care. He is to follow up with primary provider. He was given warnings to return to the ER <Cristal Sutton PA-C - Last Filed: 01/09/25 19:39> Differential Diagnosis Differential diagnosis: Likely other (Rib fracture, contusion, muscle strain) <Cristal Sutton PA-C - Last Filed: 01/09/25 19:39> Imaging Data Radiologist's impression: ITS Impressions Lumbar Spine X-Ray 01/09/25 19:13 IMPRESSION: No acute fracture or traumatic malalignment detected in the lumbar spine. If symptoms persist or clinical suspicion of injury is high, consider CT of the lumbar spine. Thoracic Spine X-Ray 01/09/25 19:18 IMPRESSION: No acute fracture or traumatic malalignment detected in the thoracic spine. If symptoms persist or clinical suspicion of injury is high, consider CT of the thoracic spine. Ribs w/Chest X-Ray 01/09/25 19:20 IMPRESSION: No acute cardiopulmonary process. No acute osseous finding in the right ribs. <Cristal Sutton PA-C - Last Filed: 01/09/25 19:39> Critical Care Time Critical Care Time Critical Care Time: No <QUINCY Mccarthy Last Filed: 01/09/25 19:39> Discharge Plan Discharge Clinical Impression: Muscle strain of chest wall Qualifiers: Encounter type: initial encounter Qualified Code(s): S29.011A - Strain of muscle and tendon of front wall of thorax, initial encounter <Sonam Guan APRN - Last Filed: 01/09/25 18:54> Patient Disposition: Home <Sonam Guan APRN - Last Filed: 01/09/25 18:54> Condition: Stable <Sonam Guan APRN - Last Filed: 01/09/25 18:54> Instructions: Muscle Strain (ED) <Sonam Guan APRN - Last Filed: 01/09/25 18:54> Additional Instructions: Return to the ER if you experience chest pain, shortness of breath, weakness, numbness, or any other symptoms that are concerning to you Rest, use ice/heat, take anti-inflammatories (Aleve, Ibuprofen, Naproxen, etc) or Tylenol as needed for pain Follow up with your primary care doctor <Sonam Guan APRN - Last Filed: 01/09/25 18:54> Patient Language: Lebanese <Sonam Guan APRN - Last Filed: 01/09/25 18:54> Follow-up/Referrals: Nasir,Jake Childs MD [Primary Care Provider] - <Sonam Guan APRN - Last Filed: 01/09/25 18:54>
[2025-01-09 18:52] VITALS: BP 140/85; PULSE 58; RESP 16; TEMP 36.6; O2SAT 99
--- OUTSIDE RECORDS SUMMARY | 2025-01-09 19:24 | XMS_ITS | Clinical Summary ---
Author Organization [facility] Address [address] [place] [address] Phone Care Team Providers Care Director Regulatory Compliance Name Role Phone Jake Best MD Primary Care Provider [phone] Allergies No known active allergies Medications Turmeric Curcumin 500 MG Capsule Take by mouth. Active [place] 3 1000 MG Capsule Take 1 g by mouth. Active Nutritional Supplements (ProMod) Liquid Take by mouth. Active naproxen (NAPROSYN) 500 MG Tablet Take 500 mg by mouth. 06/08/2020 Active Multiple Vitamin (Daily-Amanda) Tablet Take 1 Tablet by mouth. Active ketoconazole (NIZORAL) 2 % Cream Apply. 02/23/2017 Active ipratropium (ATROVENT) 0.06 % Solution 2 Sprays. 04/22/2017 Active Creatine ([id number]) 5000 MG Pack Take by mouth. Active [...] patient's age to complete this topic Insurance [facility] Care Teams Director Regulatory Compliance Relationship Specialty Start Date End Date Jake Best MD [address] [place] [phone] PCP - General 10/06/18
--- OUTSIDE RECORDS SUMMARY | 2025-01-09 19:24 | XMS_ITS | Continuity of Care Document ---
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 Therapeutic Activities Neuromuscular Re-Ed Therapeutic Exercise Manual Therapy Hot or Cold Pack Neuromuscular Re-Ed Therapeutic Activities Therapeutic Exercise Hot or Cold Pack Manual Therapy Therapeutic Activities Neuromuscular Re-Ed Hot or Cold Pack Manual Therapy Therapeutic Exercise Therapeutic Activities Manual Therapy Therapeutic Exercise Neuromuscular Re-Ed Hot or Cold Pack Therapeutic Activities Neuromuscular Re-Ed Manual Therapy Therapeutic Exercise Ultrasound Hot or Cold Pack Therapeutic Activities Neuromuscular Re-Ed Therapeutic Exercise Ultrasound Hot or Cold Pack Manual Therapy Neuromuscular Re-Ed Therapeutic Activities Manual Therapy Therapeutic Exercise Hot or Cold Pack Ultrasound Neuromuscular Re-Ed Therapeutic Exercise Manual Therapy Therapeutic Activities Neuromuscular Re-Ed Hot or Cold Pack Manual Therapy Therapeutic Activities Therapeutic Exercise Theraputty Neuromuscular Re-Ed Therapeutic Exercise Therapeutic Activities Manual Therapy Therapeutic Activities Neuromuscular Re-Ed Therapeutic Exercise Manual Therapy Hot or Cold Pack Neuromuscular Re-Ed Therapeutic Exercise Therapeutic Activities Manual Therapy Therapeutic Activities Manual Therapy Neuromuscular Re-Ed Therapeutic Exercise OT Re-Evaluation Therapeutic Activities Neuromuscular Re-Ed Therapeutic Exercise Hot or Cold Pack Therapeutic Activities Therapeutic Exercise Neuromuscular Re-Ed Manual Therapy Therapeutic Exercise Manual Therapy Therapeutic Activities Neuromuscular Re-Ed Therapeutic Activities Manual Therapy Therapeutic Exercise Neuromuscular Re-Ed Therapeutic Exercise Manual Therapy Therapeutic Activities Therapeutic Activities Manual Therapy Therapeutic Exercise Neuromuscular Re-Ed PT Evaluation Low Complexity Manual Therapy Therapeutic Activities Therapeutic Exercise Neuromuscular Re-Ed Progress Note Hot or Cold Pack Manual Therapy Therapeutic Activities Therapeutic Exercise Ultrasound Manual Therapy Neuromuscular Re-Ed Hot or Cold Pack Therapeutic Exercise Therapeutic Activities Ultrasound Therapeutic Activities Neuromuscular Re-Ed Therapeutic Exercise Manual Therapy Hot or Cold Pack Ultrasound Neuromuscular Re-Ed Manual Therapy Therapeutic Activities Therapeutic Exercise Therapeutic Activities Neuromuscular Re-Ed Therapeutic Exercise Manual Therapy Therapeutic Activities Neuromuscular Re-Ed Manual Therapy Therapeutic Exercise Therapeutic Activities Neuromuscular Re-Ed Therapeutic Exercise Manual Therapy Therapeutic Activities Manual Therapy Neuromuscular Re-Ed Therapeutic Exercise Therapeutic Activities Neuromuscular Re-Ed Therapeutic Exercise Manual Therapy Neuromuscular Re-Ed Therapeutic Activities Therapeutic Exercise Manual Therapy Therapeutic Activities Neuromuscular Re-Ed Therapeutic Exercise Manual Therapy Therapeutic Activities Manual Therapy Therapeutic Exercise Neuromuscular Re-Ed Therapeutic Activities Neuromuscular Re-Ed Therapeutic Exercise Manual Therapy Hot or Cold Pack Progress Note Therapeutic Activities Therapeutic Exercise Neuromuscular Re-Ed Hot or Cold Pack Manual Therapy Therapeutic Activities Therapeutic Exercise Manual Therapy Neuromuscular Re-Ed Hot or Cold Pack Therapeutic Activities Neuromuscular Re-Ed Therapeutic Exercise Hot or Cold Pack Manual Therapy Therapeutic Activities Manual Therapy Hot or Cold Pack Neuromuscular Re-Ed Therapeutic Exercise Therapeutic Activities Neuromuscular Re-Ed Therapeutic Exercise Hot or Cold Pack Manual Therapy Therapeutic Activities Neuromuscular Re-Ed Therapeutic Exercise Manual Therapy Hot or Cold Pack Therapeutic Activities Neuromuscular Re-Ed Hot or Cold Pack Manual Therapy Therapeutic Exercise Neuromuscular Re-Ed Therapeutic Activities Hot or Cold Pack Therapeutic Exercise Manual Therapy Therapeutic Activities Neuromuscular Re-Ed Therapeutic Exercise Manual Therapy Hot or Cold Pack Therapeutic Activities Neuromuscular Re-Ed Therapeutic Exercise Hot or Cold Pack Manual Therapy OT Evaluation Low Complexity Therapeutic Exercise Therapeutic Activities Progress Note Therapeutic Activities Neuromuscular Re-Ed Therapeutic Exercise Manual Therapy Therapeutic Activities Neuromuscular Re-Ed Therapeutic Exercise Manual Therapy Neuromuscular Re-Ed Therapeutic Activities Therapeutic Exercise Manual Therapy Therapeutic Exercise Therapeutic Activities Manual Therapy Neuromuscular Re-Ed Therapeutic Activities Neuromuscular Re-Ed Therapeutic Exercise Manual Therapy Therapeutic Activities Neuromuscular Re-Ed Hot or Cold Pack Manual Therapy Therapeutic Exercise Neuromuscular Re-Ed Therapeutic Exercise Therapeutic Activities Manual Therapy Hot or Cold Pack Therapeutic Activities Manual Therapy Neuromuscular Re-Ed Hot or Cold Pack Therapeutic Exercise Neuromuscular Re-Ed Therapeutic Activities Therapeutic Exercise Progress Note Hot or Cold Pack Manual Therapy Therapeutic Activities Manual Therapy Therapeutic Exercise Neuromuscular Re-Ed Hot or Cold Pack Therapeutic Activities Neuromuscular Re-Ed Therapeutic Exercise Manual Therapy Hot or Cold Pack Therapeutic Activities Neuromuscular Re-Ed Hot or Cold Pack Manual Therapy Therapeutic Exercise Therapeutic Activities Therapeutic Exercise Neuromuscular Re-Ed Manual Therapy Hot or Cold Pack Therapeutic Activities Neuromuscular Re-Ed Therapeutic Exercise Manual Therapy Hot or Cold Pack Therapeutic Activities Therapeutic Exercise Hot or Cold Pack Manual Therapy Neuromuscular Re-Ed Therapeutic Exercise OT Evaluation Low Complexity Advance Directives Directive Yes / No Effective Date File Name No Information Encounters Encounter Description Practice Location Reason(s) For Visit Diagnoses Date Provider Providers Copied on Encounter [facility] [address], [place], [place], [id number], tel:[phone] [place] No Information Rodolfo Lozadaa. . Referring Provider: Kinga Sheppard [facility] [address], [place], [address]. tel:[phone] [place] [address] [address], [place], [place], [address], tel:[phone] Jose No Information Rodolfo Lozadaa. . Ref[facility] [address], [place], [address]. tel:[phone] [place] [address] [address], [place], [place], [address], tel:[phone] Jose No Information Rodolfo Lozadaa. . Referring Provider: Kinga Sheppard [address], [place], [address]. tel:[phone] [place] [address] [address], [place], [place], [address], tel:[phone] [place] No Information Rodolfo Lozadaa. . Referring Provider: Kinga Sheppard [address], [place], [address]. tel:[phone] [facility], [address], [place], [place], [address], [place] tel:[phone] Jose No Information Rodolfo Annie. . Referring Provider: Duglas Andrade, Kinga [facility] [address], [place], [address]. tel:[phone] [facility], [place], [place], [address], [place] tel:[phone] [place] No Information Rodolfo Annie. . Referring Provider: Kinga Sheppard [address], [place], [address]. tel:[phone] [facility], [address], [place], [place], [address], [place] tel:[phone] Jose No Information Rodolfo Annie. . Referring Provider: Kinga Sheppard [facility] [address]B,[address]A, [place], [address]. tel:[phone] [facility], [place], [place], [address], [place] tel:[phone] [place] No Information Rodolfo Annie. . Referring Provider: Kinga Sheppard [address], [place], [address]. tel:[phone] [facility], [place], [place], [address], [place] tel:[phone] [place] No Information Rodolfo Annie. . Referring Provider: Kinga Sheppard [address], [place], [address]. tel:[phone] [facility], [place], [place], [address], tel:[phone] Jose No Information Thalia Hahn. [address] [facility], [address], [place], [place], [facility], . tel:[phone] Referring Provider: [address], [place], [address]. tel:[phone] [facility] [address] [place], [place] [address]e [address], [place], [place], [address], [place] tel:[phone] [place] No Information Rodolfo Valencia. . Referring Provider: Duglas Andrade, Kinga [facility] [address], [place], [address]. tel:[phone] [place] [address], [address] [place] [address], [place], [place], [address], tel:[phone] [place] No Information Thalia Hahn. [address] [place] [address], [address], [place], [place], [facility], [place]. tel:[phone] Referring Provider: [address], [place], [address]. tel:[phone] [place] [address], [address] [place] [address] 300, [place], [place], [address], [place] tel:[phone] [place] No Information Rodolfo Valencia. . Referring Provider: Duglas Andrade, Kinga [facility] [address]B,[address]A, [place], [address]. tel:[phone] [place] [address], [address] [place] [address] 300, [place], [place], [address], [place] tel:[phone] [place] No Information Thalia Hahn. [address] [place] [address], [address], [place], [facility], . tel:[phone] Referring Provider: [address], [place], [address]. tel:[phone] [place] [address], [address] [facility], [place], [place], [address], [place] tel:[phone] Jose No Information Thalia Hahn. [address] [place] [address], [address], [place], [facility], . tel:[phone] Referring Provider: [address], [place], [address]. tel:[phone] [place] [address], [place], [place], [address], [place] tel:[phone] [place] No Information Rodolfo Valencia. . Referring Provider: Duglas Andrade, [address] [place] [address] [address]A, [place], [address]. tel:[phone] [place] [address], [address] [facility], [id number], [place] tel:[phone] [place] No Information Thalia Hahn. [address] [place] [address], [address], [place], [address], [place]. tel:[phone] Referring Provider: [address], [place], [address]. tel:[phone] [place] [address], [address] [facility] [address], [place], [address], [place] tel:[phone] [place] No Information Thalia Hahn. [address] [place] [address], [address], [place], [address], [place]. tel:[phone] Referring Provider: [address], [place], [address]. tel:[phone] [place] [id number] [facility], [place], [place], [address], [place] tel:[phone] [place] No Information Stuart Crowe. . Referring Provider: [address], [place], [address]. tel:[phone] [facility], [facility] [address], [place], [place], [address], [place] tel:[phone] [place] No Information Thalia Hahn. [address] [place] [address], [address], [place], [facility], . tel:[phone] Referring Provider: [address], [place], [address]. tel:[phone] [place] [address], [facility] [address], [place], [place], [address], [place] tel:[phone] Jose No Information Thalia Hahn. [address] [place] [address], [address], [place], [facility], . tel:[phone] Referring Provider: [address], [place], [address]. tel:[phone] [place] [address], [address] [place], [place] [address], [place], [place], [address], [place] tel:[phone] Jose No Information Stuart Quintanilla . Referring Provider: [address], [place], [address]. tel:[phone] [place] [address], [facility] [address], [place], [place], [address], [place] tel:[phone] [place] No Information Kong Suarez. [address] [place] [address], [address], [place], [facility], [place]. tel:[phone] Referring Provider: Duglas Andrade, [facility] [address]B,[address]A, [place], [address]. tel:[phone] [place] [address], [facility] [address], [place], [place], [address], [place] tel:[phone] [place] No Information Kong Suarez. [address] [place] [address], [address], [facility], . tel:[phone] Referring Provider: Arina Sheppard[address], [place], [address]. tel:[phone] [place] [address], [id number], tel:[phone] [place] No Information Kong Suarez. [address] [place] [address], [address], [facility], . tel:[phone] Referring Provider: Arina Sheppard[address], [place], [address]. tel:[phone] [place] [address], [id number], tel:[phone] Jose No Information Kong Suarez. [address] [place] [address], [address], [facility], . tel:[phone] Referring Provider: Arina Sheppard[address], [place], [address]. tel:[phone] [place] [address], [id number], tel:[phone] Jose No Information Kong Suarez. [address] [place] [address], [facility] [address], [place], [facility], . tel:[phone] Referring Provider: Kinga Sheppard [address], [place], [address]. tel:[phone] [place] [address], [id number], tel:[phone] [place] No Information Kong Suarez. [address] [place] [address], [address], [place], [facility], . tel:[phone] Referring Provider: Kinga Sheppard [address]A, [place], [address]. tel:[phone] [address] [facility], [place], [place], [address], tel:[phone] Jose No Information Triana Daniela. [address] [place] [address], [address], [place], [facility], . tel:[phone] Referring Provider: Duglas Andrade, Arina[address], [place], [address]. tel:[phone] [place] [address], [id number], tel:[phone] [place] No Information Kong Suarez. [address] [place] [address], [facility] [address], [place], [facility], . tel:[phone] Referring Provider: Kinga Sheppard [address]B,[address]A, [place], [address]. tel:[phone] [address] [place] [address], [id number], tel:[phone] [place] No Information Triana Daniela. [address] [place] [address], [address], [place], [facility], . tel:[phone] Referring Provider: Kinga Sheppard [address], [place], [address]. tel:[phone], [place], [address], tel:[phone] Jose No Information Kong Suarez. [address] [place] [address], [address], [place], [facility], . tel:[phone] Referring Provider: Kinga Sheppard [address], [place], [address]. tel:[phone] [address], [place], [place], [address], tel:[phone] [place] No Information Kong Suarez. [address] [place] [address], [address], [place], [facility], . tel:[phone] Referring Provider: Kinga Sheppard [address], [place], [address]. tel:[phone] [address], [place], [place], [address], tel:[phone] Jose No Information Kong Suarez. [address] [place] [address], [address], [place], [facility], . tel:[phone] Referring Provider: Kinga Sheppard [address], [place], [address]. tel:[phone] [address], [place], [place], [address], [place] tel:[phone] [place] No Information Kong Suarez. [address] [place] [address], [address], [place], [facility], . tel:[phone] Referring Provider: Kinga Sheppard [address], [place], [address]. tel:[phone], [place], [place], [address], [place] tel:[phone] [place] No Information Kong Suarez. [address] [place] [address], [address], [place], [facility], . tel:[phone] Referring Provider: Arina Sheppard[address], [place], [address]. tel:[phone], [place], [place], [address], tel:[phone] Jose No Information Kong Suarez. [address] [facility], [facility] [address], [place], [facility], . tel:[phone] Referring Provider: Kinga Sheppard [facility] [address], [place], [address]. tel:[phone] [place] [address], [place], [place], [address], tel:[phone] [place] No Information Kong Suarez. [address] [place] [address], [address], [place], [facility], . tel:[phone] Referring Provider: Kinga Sheppard [facility] [address]B,[address]A, [place], [address]. tel:[phone] [place] [address], [place], [place], [address], tel:[phone] Jose No Information Kong Suarez. [address] [place] [address], [address], [place], [facility], . tel:[phone] Referring Provider: Kinga Sheppard [facility] [address]B,[address], [place], [address]. tel:[phone] [place] [address], [place], [place], [address], tel:[phone] [place] No Information Kong Suarez. [address] [facility], [address], [place], [facility], . tel:[phone] Referring Provider: Kinga Sheppard [address], [place], [address]. tel:[phone] [place] [address], [place], [place], [address], tel:[phone] Jose No Information Kong Suarez. [address] [place] [address], [address], [place], [facility], . tel:[phone] Referring Provider: Kinga Sheppard [facility] [address]B,[address]A, [place], [address]. tel:[phone] [place] [address] [address], [place], [place], [address], tel:[phone] Jose No Information Kong Suarez. [address] [place] [address], [address], [place], [address], . tel:[phone] Referring Provider: Kinga Sheppard [facility] [address], [place], [address]. tel:[phone] [place] [address] [address], [place], [place], [address], [place] tel:[phone] Jose No Information Kong Suarez. [address] [place] [address], [address], [place], [address], [place]. tel:[phone] Referring Provider: Kinga Sheppard [facility] [address], [place], [address]. tel:[phone] [place] [address] [address], [place], [place], [address], [place] tel:[phone] [place] No Information Kong Suarez. [address] [place] [address], [address], [place], [address], [place]. tel:[phone] Referring Provider: Kinga Sheppard [facility] [address], [place], [address]. tel:[phone] [place] [address] [address], [place], [place], [address], tel:[phone] [place] No Information Kong Suarez. [address] [place] [address], [address], [place], [facility], . tel:[phone] Referring Provider: Arina Sheppard[address], [place], [address]. tel:[phone] [place] [address]e [address] [place] [address], [id number], tel:[phone] Jose No Information Kong Suarez. [address] [facility], [facility] [address], [place], [facility], . tel:[phone] Referring Provider: Arina Sheppard[address], [place], [address]. tel:[phone] [place] [address]e [address] [place] [address], [id number], tel:[phone] [place] No Information Kong Suarez. [address] [place] [address], [address], [facility], . tel:[phone] Referring Provider: Arina Sheppard[address], [place], [address]. tel:[phone] [place] [address]e [address] [place] [address], [id number], tel:[phone] [place] No Information Kong Suarez. [address] [facility], [address], [place], [facility], . tel:[phone] Referring Provider: Arina Sheppard[address], [place], [address]. tel:[phone] [place] [address], [id number], tel:[phone] [place] No Information Kong Suarez. [address] [facility], [address], [place], [facility], . tel:[phone] Referring Provider: [address], [place], [address]. tel:[phone] [address], [place], [place], [address], tel:[phone] [place] No Information Kong Suarez. [address] [place] [address], [address], [place], [facility], . tel:[phone] Referring Provider: Kinga Sheppard [address], [place], [address]. tel:[phone] [address], [place], [place], [address], tel:[phone] [place] No Information Kong Suarez. [address] [place] [address], [address], [place], [facility], . tel:[phone] Referring Provider: Kinga Sheppard [address]A, [place], [address]. tel:[phone] [address] [facility], [place], [place], [address], tel:[phone] [place] No Information Kong Suarez. [address] [place] [address], [address], [place], [facility], . tel:[phone] Referring Provider: Kinga Sheppard [address]B,[address]A, [place], [address]. tel:[phone] [address], [place], [address], tel:[phone] [place] No Information Kong Suarez. [address] [place] [address], [address], [place], [facility], . tel:[phone] Referring Provider: Kinga Sheppard [address], [place], [address]. tel:[phone], [place], [id number], tel:[phone] Jose No Information Kong Suarez. [address] [facility], [address], [place], [facility], . tel:[phone] Referring Provider: Kinga Sheppard [address], [place], [address]. [phone] [address], [place], [place], [id number], tel:[phone] Baring No Information Kong Suarez. [address] [place] [address], [address], [place], [facility], . tel:[phone] Referring Provider: Kinga Sheppard [address], [place], [address]. [phone], [place], [place], [id number], tel:[phone] B[place] No Information Kong Suarez. [address] [place] [address], [address], [place], [facility], . tel:[phone] Referring Provider: Kinga Sheppard [address], [place], [address]. [phone], [place], [place], [id number], [place] tel:[phone] Jose No Information Kong Suarez. [address] [place] [address], [address], [place], [facility], . tel:[phone] Referring Provider: Kinga Sheppard [address], [place], [address]. tel:[phone] [facility] [address] [place] [address] [address], [place], [place], [id number], tel:[phone] Jose No Information Kong Suarez. [address] [place] [address], [facility] [address], [place], [facility], . tel:[phone] Referring Provider: Kinga Sheppard [facility] [address], [place], [address]. tel:[phone] [place] [address] [address], [place], [place], [id number], tel:[phone] Baring No Information Kong Suarez. [address] [place] [address], [address], [place], [facility], . tel:[phone] Referring Provider: Kinga Sheppard [facility] [address], [place], [address]. tel:[phone] [place] [address], [place], [place], [id number], tel:[phone] Baring No Information Kong Suarez. [address] [place] [address], [address], [place], [facility], . tel:[phone] Referring Provider: Kinga Sheppard [facility] [address], [place], [address]. tel:[phone] [place] [address] [address], [place], [place], [id number], tel:[phone] Jose No Information Kong Suarez. [address] [place] [address], [address], [place], [address], . tel:[phone] Referring Provider: Kinga Sheppard [address], [place], [address]. tel:[phone] [place] [address] [address], [place], [place], [id number], tel:[phone] Ojse No Information Kong Suarez. [address] [facility], [address], [place], [address], [place]. tel:[phone] Referring Provider: Duglas Andrade, [address], [place], [address]. tel:[phone] Family History Family Member Type Diagnosis Age At Onset No Information Payers Payer name Insurance type Covered republican ID Authorashleea tiedi(s) CCMSI [facility] [id number] One Call - Align SP [id number] Social History Type Description Quantity Date Captured Comments Sex Male Smoking Status No Information Chief Complaint And Reason For Visit No Information Reason For Referral Reason For Referral No Information Plan Of Treatment Date Type Action Status Nutrition Recommendation Nutrition / feed ing management completed History Of Present Illness Encounter Date Complaint History Of Prese nt Illness No Information Functional Status Date Functional Assessmen t No Information Instructions Date Instruction Additional Infor mation Giving encouragement to exercise Related to Overweight Dietary needs education Related to Overweight Dietary needs education Related to Overweight Dietary needs education Related to Overweight Giving encouragement to exercise Related to Overweight Prescribed activity/exercise edu cation Related to Overweight Prescribed activity/exercise edu cation Related to Overweight Assessments Type Assessment Date No Information Patient Care Teams Name Effective Dates (start - stop) Status Members No Information
--- OUTSIDE RECORDS SUMMARY | 2025-01-09 19:24 | XMS_ITS | Clinical Summary ---
Author Organization [facility] Address [address] [place] [address] Care Team Providers Care Anesthesia Director Name Role Phone Jake Best MD Primary Care Provider [phone] Allergies No known active allergies Medications multivitamin (DAILY-ALMA) tablet Take 1 Tablet by mouth daily. Active protein supplement (PRO-STAT) Liquid Take by mouth. Active Amino Acids Powder Take by mouth. Active creatine, bulk, 100 % Powder by [facility].(Non-Dr ug; Combo Route) route. Active FA/mv,calc,iron /pollen/dsew450 (MAXIMUM DAILY GREEN ORAL) Take by mouth. [...] Type Department Care Team Description 12/20/2024 Telephone [facility] [address] [place] [address] Singh Castillo MD veins - follow up US results 12/18/2024 8:58 AM CDT - 12/18/2024 11:59 PM CDT Hospital Encounter [facility] [place] [address] [place] [address] Singh Castillo MD Discharge Disposition: Home or Self Care 12/05/2024 12:12 PM CDT - 12/05/2024 11:59 PM CDT Hospital Encounter [facility] [address] [place] [address] Singh Castillo MD Discharge Disposition: Home or Self Care 12/02/2024 Telephone [facility] [address] [place] [address] Singh Castillo MD does insurance cover his 2nd procedure 11/19/2024 8:55 AM CDT - 11/19/2024 11:59 PM CDT Hospital Encounter [facility] [address] [place] [address] Singh Castillo MD Discharge Disposition: Home or Self Care 11/08/2024 Telephone [facility] [address] [place] [address] Singh Castillo MD need help rescheduling his F/U's 11/01/2024 Orders Only [facility] [address] [place] [address] Singh Castillo MD Venous insufficiency (Primary Dx) 11/01/2024 Telephone [facility] [address] [place] [address] Singh Castillo MD wants procedure 10/31/2024 Telephone [facility] [address] [place] [address] Singh Castillo MD wants procedure 10/23/2024 Telephone [facility] [place] [address] [place] [address] Singh Castillo MD Wants Appointment 10/23/2024 Telephone [facility] [address] [facility] [address] [place] [address] Singh Castillo MD Venous Plan 10/22/2024 1:00 PM CDT Office Visit [facility] - [address] [facility] [address] [place] [address] Singh Castillo MD Chronic venous hypertension with inflammation involving both sides (Primary Dx); Varicose veins of both lower extremities with pain 10/22/2024 Chart Note [facility] [address] 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 US VENOUS REFLUX BILATERAL 10/18/2024 External Device [...] COVID-19 VACCINE - EMERGENCY USE AUTHORIZATION, MRNA, [id number](PF) 30 MCG/0.3 ML IM SUSP 11/04/2020,10/10/2020 INFLUENZA [...] on file Legal Sex Male 11:56 AM QC ANALYST Gender Identity Not on file Sexual Orientation Not on file Last Filed Vital Signs Vital Sign Reading Time Taken Comments Blood Pressure 125/74 12/05/2024 12:24 PM CDT Pulse 71 12/05/2024 12:24 PM CDT Temperature 36.3 C (97.3 F) 12/05/2024 12:24 PM CDT Respiratory Rate 20 08/01/2023 8:55 AM QC ANALYST Oxygen Saturation 98% 12/05/2024 12:24 PM CDT Inhaled Oxygen Concentration - - Weight 92.1 kg (203 lb) 12/05/2024 12:24 PM CDT Height 188 cm (6' 2) 12/05/2024 12:24 PM CDT Body Mass Index 26.06 12/05/2024 12:24 PM CDT Plan of Treatment Upcoming Encounters Date Type Department Care Team (Late st Contact Info) Description 02/24/2025 1:15 PM CDT Office Visit [facility] [address] [place] [address] Elma Alcantara, ME[employer] PROCESS[employer] CENTER MANAGER-POULTRY BREEDER [address] [facility] [address] [place] [address] Health Maintenance Due Date Last [...] cancer COLONOSCOPY REPORT 08/01/2023 8: 38 AM QC ANALYST from Last 3 Months or Most Recently Relevant to Health Maintenance Results * US VENOUS DUPLEX EXT FOLLOW UP LT (12/18/2024 9:20 AM CDT) Anatomical Region Laterality Modality Ultrasound 12/18/2024 9:06 AM CDT Narrative 12/18/2024 9:41 AM CDT [facility] Venous Exam Limited Lower Extremity Duplex Patient: Kendrick Egan Study ID: [id number] Gender: M : 1970 Age: 54 Race: CAU Height 188cm Study Date: 12/18/2024 Weight: 92.1kg Access. #: [id number] *Referring Physician:* Singh Castillo MD, Gregory MD *Ordering Physician:* Singh Castillo MD *Slide Machine Tender:* Linda Gould RDCS, TARA Indications: Status post [...] Prepared and Electronically Authenticated Duglas Pereyra M.D. [id number]:41:00 Procedure Note Duglas Pereyra MD - 12/18/2024 [facility] Venous Exam Limited Lower Extremity Duplex Patient: Kendrick Egan Study ID: [id number] Gender: M : 1970 Age: 54 Race: [facility] Height 188cm Study Date: 12/18/2024 Weight: 92.1kg Access. #: [id number] *Referring Physician:* Singh Castillo MD, Gregory MD *Ordering Physician:* Singh Castillo MD *Slide Machine Tender:* Linda Gould RDCS, RVT Indications: Status post [...] Prepared and Electronically Authenticated Duglas Pereyra M.D. [id number]:41:00 us Singh Castillo MD US ORDERABLES Final Resu lt * US VENOUS REFLUX BILATERAL (10/18/2024 2:01 PM CDT) Anatomical Region Laterality Modality Lower Extremity Ultrasound 10/18/2024 12:5 6 PM CDT Narrative 10/18/2024 2:20 PM CDT [facility] Venous Exam Venous Reflux Evaluation Patient: Kendrick Egan Study ID: [id number] Gender: M : 1970 Age: 53 Race: CAU Height 188cm Study Date: 10/18/2024 Weight: 95.7kg Access. #: [id number] *Referring Physician:Gustavo Flores Christopher *Ordering Physician:Gustavo Flores *Slide Machine Tender:* Dinorah Cannon RVT, RVS Indications: Venous insufficiency. [...] + Prepared and Electronically Authenticated Carla Culver [id number]:20:12 Procedure Note Carla Culver MD - 10/18/2024 [facility] Venous Exam Venous Reflux Evaluation Patient: Kendrick Egan Study ID: [id number] Gender: M : 1970 Age: 53 Race: [facility] Height 188cm Study Date: 10/18/2024 Weight: 95.7kg Access. #: [id number] *Referring Physician:Gustavo Flores Christopher *Ordering Physician:* Gustavo Barajas *Slide Machine Tender:Jeferson Cannon RVT, S Indications: Venous insufficiency. History: [...] + Prepared and Electronically Authenticated Palomo Dayroncorazon [id number]:20:12 Gustavo Barajas MD ORDERABLES Final R esult * HEMOGLOBIN A1C (08/08/2024 8:59 AM CDT) [facility] Signature HEMOGLOBIN A1C 5.4 <5.7 % of total Hgb LFS ([employer]Jocelin Atkinson Comment: For the purpose of screening for the presence of diabetes: <5.7% Consistent with the absence of diabetes 5.7-6.4% Consistent with increased risk for diabetes (prediabetes) > or =6.5% Consistent with diabetes This assay result is consistent with a decreased risk of diabetes. Currently, no consensus exists regarding use of hemoglobin A1c for diagnosis of diabetes in children. According to [employer] Diabetes Association (ADA) guidelines, hemoglobin A1c <7.0% represents optimal control in non- diabetic patients. Different metrics may apply to specific patient populations. Standards of Medical Care in Diabetes(ADA). ESTIMATED AVERAGE GLUCOSE (MG/DL) 108 mg/dL [employer] Atkinson ESTIMATED AVERAGE GLUCOSE (MMOL/L) 6.0 mmol/L LFS ([employer]Jocelin Atkinson Comment: FASTING:YES FASTING: YES Test Performed at: [facility] [place] [address] [address] [address] Cody Gutierrez Vo Blood 08/08/2024 8:59 AM CDT 08/08/2024 8:59 AM CDT us Hernán CASAS CHEMISTRY ORDERABLES Fi nal Result [facility] [phone] [facility] [place] [address] [address] [address] * COLONOSCOPY REPORT (08/01/2023 8:38 AM QC ANALYST) Narrative Procedure Note Karlos Fragoso MD - 08/01/2023 8:38 AM CST [facility] Endoscopy Patient Name: Kendrick Egan Procedure Date: [...] bowel preparation was evaluated using the BBPS ([place] Bowel Preparation Scale) with scores of: Right [...] for surveillance. Procedure Code(s): --- Professional --- 57346, Colonoscopy, flexible; with removal of tumor(s), polyp(s), or other lesion(s) by snare technique CPT copyright 2020 [employer]. All rights reserved. The codes documented in this report are preliminary and upon tank assembler review may be revised to meet current compliance requirements. Karlos Fragoso MD 08/01/2023 8:38:28 AM This report has been signed electronically. Number of Addenda: [id number], [place] [address] Karlos Fragoso MD GI PROCEDURE ORDERABLES Final Re sult from Last 3 Months or Most Recently Relevant to Health Maintenance Insurance [facility] [id number] [place] [address] Care Teams Anesthesia Director Relationship Specialty Start Date End Date Jake Best MD PCP - General Internal Medicine 05/11/17
--- OUTSIDE RECORDS SUMMARY | 2025-01-09 19:24 | XMS_ITS | Clinical Summary ---
Author Organization [facility] Address [address] [place] [address] Care Team Providers Care Intelligence Clerk Name Role Phone Jake Best MD Primary [...] (03/23/2021): Added automatically from request for surgery [id number] Partial tear of subscapulari s tendon, left, initial encounter 02/05/2021 TFCC (triangular fibrocartil age complex) injury, left, subsequent encounter 11/11/2019 Left wrist pain 10/14/2019 Overview (10/14/2019): Added automatically from request for surgery [id number] Pain in both wrists 07/15/2019 Hearing loss 03/04/2016 Overview (09/01/2016): Hearing loss Varicose veins of lower extremity 03/01/2016 Acute otitis externa 01/17/2016 Overview (08/31/2016): Acute swimmer's ear of both sides Immunizations Immunization Administration Dates Next Due [facility] SARS-CoV-2 Monovalent Vaccination (12+ Yrs) PURPLE 11/04/2020,10/10/2020 [...] on file Legal Sex Male 11:47 AM METAL LOADER Gender Identity Not on file Sexual Orientation [...] 188 cm (6' 2) 04/04/2023 9:30 AM METAL LOADER Body Mass Index 26.01 04/04/2023 9:30 AM METAL LOADER Plan of Treatment Health Maintenance Due Date [...] this topic Medical Devices Implanted Type Area Clerical Associate Device Identifier Shelf Expiration Date Model / Serial / Lot [employer] Ar-1530ds Bio-Tenodesis Fiberwire 2.5mm Needle Cannulated Drill Suture Pass - [id number] Implanted:Qty: 1 on 03/04/2020 by Duglas Andrade MD at [facility] Right: Wrist [employer] 08/26/2024 AR-1 530DS / / [id number] [employer] Ar-8825p Pushlock 2.5mm 8mm Mini Mary Esther Suture Peek Sterile - [id number] Implanted:Qty: 1 on 03/04/2020 by Duglas Andrade MD at [facility] Right: Wrist [employer] 09/25/2024 AR-8 825P / / [id number] [employer] Ar-2267 Test Grader Large Eyelet Pectoralis Button Fixation Latex Free - [id number] Implanted:Qty: 1 on 04/19/2021 by Jan Menchaca MD at [facility] [place] Left: Shoulder [employer] 08/26/2025 AR-2267 / / [id number] [employer] Ar-1927bct Corkscrew Suturetape 5.5mm 14.7mm Bioabsorbable Full Thread 1.3mm - [id number] Implanted:Qty: 1 on 04/19/2021 by Jan Menchaca MD at [facility] [place] Left: Shoulder [employer] 12/26/2022 AR-1927BCT / / [id number] [employer] Ar-1927bct Corkscrew Suturetape 5.5mm 14.7mm Bioabsorbable Full Thread 1.3mm - [id number] Implanted:Qty: 1 on 04/19/2021 by Jan Menchaca MD at [facility] [place] Left: Shoulder [employer] 12/26/2022 AR-1927BCT / / [id number] [employer] Ar-2324 Bcm Swivelock 4.75mm 24.5mm Self Punch Vent Shoulder Mary Esther Suture - [id number] Implanted:Qty: 1 on 04/19/2021 by Jan Menchaca MD at [facility] Left: Shoulder [employer] 01/26/2025 AR-2324BCM / / [id number] [employer] Ar-2324 Bcm Swivelock 4.75mm 24.5mm Self Punch Vent Shoulder Mary Esther Suture - [id number] Implanted:Qty: 1 on 04/19/2021 by Jan Menchaca MD at [facility] Left: Shoulder [employer] 01/26/2025 AR-2324BCM / / [id number] Explanted Type Area Clerical Associate Device Identifier Shelf Expiration Date Model / Serial / Lot [employer] [id number] Denny .45in 9in 1 [place] [facility] Wire Fixation - [id number] Explanted:Qty: 1 on 03/04/2020 by Duglas Andrade MD at [facility] [place] Right: Wrist [employer] [id number] S / / Procedures Procedure Name Priority Date/Time Associated Diagnosis Comments PSA SCREEN Routine 06/01/2017 9:30 AM METAL LOADER from Last 3 Months or Most Recently Relevant to Health Maintenance Results * PSA screen (06/01/2017 9:30 AM METAL LOADER) PSA-Total 0.23 0.10 - 4.00 ng/mL [facility] (PRINCESS) Blood specimen (specimen) 06/01/2017 9:30 AM METAL LOADER 06/01/2017 4:13 PM METAL LOADER Narrative MICHELLE FARRIS (PRINCESS) - 06/01/2017 4:53 PM METAL LOADER us Jake Best MD LAB BLOOD ORDERABLES Fin al Result MICHELLE FARRIS (PRINCESS) 1 [facility] Department [place] [address] from Last 3 Months or Most Recently Relevant to Health Maintenance Insurance [facility] PLUS [facility] PLUS [facility] PLUS WORK[employer] COMPENSATION GENERIC Advance Directives For more information, please contact: [phone] * Full Code (Latest Code Status on File) Date Activated Date Inactivated Comments 03/04/2020 12:16 PM 03/04/2020 5:40 PM Care Teams Intelligence Clerk Relationship Specialty Start Date End Date Jake Best MD PCP - General 06/02/17
== END 2025-01-09 19:46 | disposition home or self-care (01) ==
PROVIDERS: Emergency Provider Physician Assistant; PCP Internal Medicine
DX: S29.011A Strain of muscle and tendon of front wall of thorax, initial encounter (principal); W20.8XXA Other cause of strike by thrown, projected or falling object, initial encounter; Y93.B3 Activity, free weights
CPT/HCPCS: 71046; 71100; 72072; 72100; 99284